=== PATIENT | male | born 1950 | race Caucasian/White ===

== ENCOUNTER → 2018-05-25 | Outpatient (CLI) | payer MEDICARE, BC ==
[2015-03-26 19:14] VITALS: BP 137/72
[~2018-05-25] MED LIST: ASPI81TA50 PO; OLME1TAB25 PO
--- NOTE | 2018-05-25 12:51 | RAD ---
CHEST PA LATERAL Clinical indications: COUGH COMPARISON: May 25, 2012. Findings: Bilateral chronic interstitial lung disease is seen which is stable. No new lung infiltrate or pleural effusion or pulmonary edema or pneumothorax is seen. Elevation of the right hemidiaphragm is unchanged. The heart size, pulmonary vasculature, mediastinum and both gisella are unremarkable. There is a new finding of a moderate compression fracture of a mid thoracic vertebral body. Impression: Chronic interstitial lung disease. No new lung infiltrate is seen. Moderate compression fracture of a mid thoracic vertebral body of indeterminate age but new since 2012. Electronically signed by: Konstantin Ryder MD (05/25/2018 12:49 PM) [facility]
== END | disposition home or self-care (01) ==
LOC: PMG 09:32
PROVIDERS: ATTEND Physician Assistant Medical
DX: J84.89 Other specified interstitial pulmonary diseases (principal); M48.54XD Collapsed vertebra, not elsewhere classified, thoracic region, subsequent encounter for fracture with routine healing; J98.6 Disorders of diaphragm
CPT/HCPCS: 71046